=== PATIENT | female | born 2000 | race Caucasian/White ===

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

== ENCOUNTER 2023-01-27 16:00 | Outpatient (REF) | payer MEDICAID, SELFPAY ==
--- NOTE | 2023-01-27 14:05 | PAPFT_PTH ---
PATIENT: Racheal Chilel LOC: [facility]#:[id number] AGE/SX: 22/F ROOM: RE01/27/[address]: Arielle Alonso : 2000 BED: DIS: 01/27/2023 SPEC #: [id number] RECD: 01/30/23 12:56 STATUS: [place] REKayla #: [id number] HECTOR: 01/27/23 14:[address]: Arielle Alonso DEPT: [facility] Cytology RECD BY: Trudi Snyder ENTERED: 01/30/23 12:57 SP TYPE: PAPFT OT DR: Lindy Local Tissues: 1 - CX/ENDOCX FOR PAP SMEARS Procedures: PAP THIN PREP/[facility] Screening HPV DNA PROBE Comments: [id number] (HPV 16 & 18/45) (CHLAMYDIA/GC)
[2023-01-31 15:07] LABS: Chlamydia Result Negative (Negative); GC Result Negative (Negative)
== END 2023-01-27 16:01 | disposition home or self-care (01) ==
LOC: NCHCN 16:00
PROVIDERS: Visit Provider Family Medicine
DX: N89.8 Other specified noninflammatory disorders of vagina (principal); R10.2 Pelvic and perineal pain; N39.0 Urinary tract infection, site not specified; Z12.4 Encounter for screening for malignant neoplasm of cervix; Z11.3 Encounter for screening for infections with a predominantly sexual mode of transmission; R87.610 Atypical squamous cells of undetermined significance on cytologic smear of cervix (ASC-US); Z11.51 Encounter for screening for human papillomavirus (HPV); R87.810 Cervical high risk human papillomavirus (HPV) DNA test positive
CPT/HCPCS: 87491; 87591; 88142; 87086; 87480; 87510; 87624; 87660

== ENCOUNTER 2023-02-23 14:44 | Outpatient (REF) | payer MEDICAID, SELFPAY ==
[2023-02-27 14:59] LABS: Mycoplasma hominis PCR Negative; Specimen Source Urine
== END 2023-02-23 14:45 | disposition home or self-care (01) ==
LOC: NCHCN 14:44
PROVIDERS: Family Medicine; Visit Provider Nurse Practitioner Family
DX: N39.0 Urinary tract infection, site not specified (principal); R10.2 Pelvic and perineal pain
CPT/HCPCS: 87086; 87109

== ENCOUNTER 2024-04-06 15:13 | Outpatient (REF) | payer MEDICAID, SELFPAY | END 2024-04-06 15:14 | disposition home or self-care (01) | LOC: LBN 15:13 | PROVIDERS: Visit Provider Nurse Practitioner Family | DX: J02.9 Acute pharyngitis, unspecified (principal) | CPT/HCPCS: 87070 ==